=== PATIENT | male | born 1975 | race Caucasian/White ===

== ENCOUNTER 2017-03-09 04:35 | Emergency (ER) | payer OTHER ==
[~2017-03-09] VITALS: Ht 180.3 cm; Wt 123.3 kg
[2017-03-09] MEDS ORDERED: CEPHALEXIN 500 MG CAPSULE PO SCH (05:30)
[2017-03-09] MEDS ORDERED: CEPHALEXIN 500 MG CAPSULE ONE (05:38)
[2017-03-09] MEDS ORDERED: METF500T4 PO (06:02)
[2017-03-09] MEDS ORDERED: LIRA0.6P SC (06:03)
[2017-03-09] MEDS ORDERED: DAPA5TAB PO (06:05)
[2017-03-09] MEDS ORDERED: LISI-167 PO (06:06)
[2017-03-09] MEDS ORDERED: SIMV10TA PO (06:06)
[2017-03-09] MEDS ORDERED: SIMV10TA3 PO (06:06)
[2017-03-09] MEDS ORDERED: BACITRACIN ZINC OINT 500U/GM, 0.9 GM ONE (06:23)
[2017-03-09 06:28] VITALS: BP 116/72
== END 2017-03-09 06:32 | disposition home or self-care (01) ==
LOC: ED 05:15
DX: M70.42 Prepatellar bursitis, left knee (principal); M70.41 Prepatellar bursitis, right knee; L03.115 Cellulitis of right lower limb; E11.65 Type 2 diabetes mellitus with hyperglycemia; K21.9 Gastro-esophageal reflux disease without esophagitis; E78.00 Pure hypercholesterolemia, unspecified; I10 Essential (primary) hypertension
CPT/HCPCS: 82962; 99284